=== PATIENT | female | born 1975 | race Caucasian/White ===

== ENCOUNTER 2019-12-12 17:40 | Emergency (ER) | payer MEDICAID ==
[~2019-12-12] VITALS: Ht 162.6 cm; Wt 65.0 kg
[~2019-12-12 17:40] MED LIST: DOXY100C2 PO; METR-159 PO
[2019-12-12 18:01] VITALS: BP 165/101
== END 2019-12-12 20:47 | disposition left against medical advice (07) ==
LOC: ER 17:41
DX: M54.2 Cervicalgia (principal); R11.2 Nausea with vomiting, unspecified; M25.519 Pain in unspecified shoulder; Z53.21 Procedure and treatment not carried out due to patient leaving prior to being seen by health care provider
CPT/HCPCS: 93005

== ENCOUNTER → 2024-05-13 | Outpatient (CLI) | payer MEDICAID ==
[~2024-05-13] VITALS: Ht 162.6 cm; Wt 77.1 kg
[~2024-05-13] MED LIST changes: +DOXY-411 PO; -DOXY100C2 PO; -METR-159 PO
[2024-05-13] MEDS: albuterol 2.5 MG/3 ML nebule NEB PRN (15:09)
[2024-05-13 15:11] VITALS: PULSE 76; RESP 18; O2SAT 96
== END | disposition home or self-care (01) ==
LOC: RAD 14:28
PROVIDERS: ATTEND Physician Assistant
DX: R06.02 Shortness of breath (principal); Z72.0 Tobacco use
CPT/HCPCS: 94060; 94760